=== PATIENT | male | born 1955 | race Caucasian/White ===

== ENCOUNTER 2020-06-07 08:13 | Emergency (ER) | payer OTHER ==
[~2020-06-07] VITALS: Ht 175.3 cm; Wt 102.5 kg
[~2020-06-07 08:13] MED LIST: ASTAXANTHIN4 MG PO; ATENOLOL25 MG PO; BAYER BACK & B1 EACH PO; CAL MAG ZINC +1 EACH PO; CYCLOBENZAPRINE5 MG PO; DULOXETINE HCL30 MG PO; FAMOTIDINE20 MG PO; GABAPENTIN300 MG PO; GARLIC200 MG PO; IBUPROFEN400 MG; KEFLEX500 MG PO; MULTIVITAMINS1 EAC7 PO; OMEPRAZOLE40 MG
[2020-06-07] MEDS ORDERED: METFORMIN HCL850 MG PO (08:32)
[2020-06-07] MEDS ORDERED: ULTRAM50 MG PO (11:14)
== END 2020-06-07 11:35 | disposition home or self-care (01) ==
LOC: ED 08:13
DX: S49.92XA Unspecified injury of left shoulder and upper arm, initial encounter (principal); M25.522 Pain in left elbow; W01.0XXA Fall on same level from slipping, tripping and stumbling without subsequent striking against object, initial encounter; Z79.84 Long term (current) use of oral hypoglycemic drugs; Z79.899 Other long term (current) drug therapy
CPT/HCPCS: 73030; 73080; 99283-25